=== PATIENT | female | born 1960 | race Caucasian/White ===

== ENCOUNTER 2016-11-30 14:48 | Emergency (ER) | payer OTHER ==
--- NOTE | 2016-11-30 17:14 | ED NURSING NOTES ---
Clinical Report - Nurses [facility] [address] [place] [address] 11/30/2016 14:51 Patient: BRITNEY JARAMILLO TRIAGE Triage time 15:13. Acuity: LEVEL 3. Chief Complaint: (Flu Sx, nausea/vomiting, unable to eat since 11/25. Fever 102.5. Other family had similar sx.). SEPSIS SCREEN: Sepsis Screen. Negative (no infection suspected/documented). JAMI COMA SCORE: [place] Coma Scale: 15- eyes open spontaneously (4); best verbal response- oriented x 4 (5); best motor response- obeys commands (6). --15:21 Carlos Davis R.N. 15:13 11/30/16. BP: 157/115. HR: 86. RR: 20. O2 saturation: 100%. Temp: 99 F (oral). Pain level now: 01/09. --15:21 Carlos Davis R.N. Weight: 68 kg stated. Height/Length: 63 inches Per Patient. BMI: 26.6. --15:18 Carlos Davis R.N. Medications Imitrex Oral. --15:17 Carlos Davis R.N. Allergies No Known Drug Allergy. --15:17 Carlos Davis R.N. 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 SOCIAL HX: Former smoker. No alcohol use or drug use. She has had contact with a sick family member. ABUSE ASSESSMENT: No report of abuse. --15:21 Carlos Davis R.N. PROBLEMS: Cocaine abuse (20 years ago). Migraine Headache. --15:17 Carlos Davis R.N. ADDITIONAL SURGERIES: Knee surgery. --15:17 Carlos Davis R.N. Interventions ID band on patient. To treatment room. --15:21 Carlos Davis R.N. PHYSICAL ASSESSMENT late entry -15:30. Ambulatory to room. GENERAL / NEURO / PSYCH: Alert. Oriented X 4. Appears in pain. (States not really much pain, just feeling really miserable.). HEENT: Pupils equal, round and reactive to light. Mucous membranes are pink. RESPIRATORY: Respirations not labored. Chest nontender. Breath sounds within normal limits. CVS: Capillary refill less than 2 seconds. Pulses within normal limits. GI / : Abdomen soft and normal bowel sounds. Abdominal tenderness. SKIN: Skin intact. Skin is warm and dry. Normal skin turgor. --16:22 Carlos Davis R.N. NURSING PROGRESS NOTES 15:35 11/30/2016 Site #1 started via IV in the right antecubital space with an 18g angiocath, with aseptic technique and good blood return; one attempt. Blood drawn: rainbow set. Labeled in the presence of the patient and sent to the lab. Saline lock flushed with 10 mL saline. --15:40 Carlos Davis R.N. 15:35 11/30/2016 Started bag #1 1000 mL IV Fluids IV NS (Saline); bolus of 1000 mL over 1 hour(s) via site #1. Allergies verified and confirmed 5 rights. IV patency established. IV site checked: no pain, redness, or swelling. IV flushed thoroughly pre- and post-medication administration. --15:40 Carlos Davis R.N. ( urine sent to lab). --16:15 Allison Childs ER Tech1 ( provided patient with cup of water). --16:16 Allison Childs ER Tech1 late entry -15:30. Pulse oximeter applied. Patient gowned. Head of bed elevated. Reassurance given. Call light placed in reach. Bed placed in lowest position. Brakes of bed on. Patient ready for evaluation- chart flagged. --16:23 Carlos Davis R.N. 16:20 11/30/16. BP: 187/99. HR: 63. RR: 20. O2 saturation: 100% on room air. Pain level now: 01/09. --16:23 Carlos Davis R.N. 16:27 11/30/16. BP: 190/93. HR: 56. RR: 20. O2 saturation: 98%. --16:27 Carlos Davis R.N. 16:35 11/30/2016 IV Fluids IV NS Discontinued: bag #1 completed. Total amount infused: 1000 mL. IV patency established. IV site checked: no pain, redness, or swelling. IV flushed thoroughly. --17:27 Carlos Davis R.N. 16:43 11/30/2016 Toradol IVP 30 mg given over 1 minute(s) via site #1. Allergies verified and confirmed 5 rights. IV patency established. IV site checked: no pain, redness, or swelling. IV flushed thoroughly pre- and post-medication administration. IVP given by RN. --16:48 Carlos Davis R.N. 16:50 11/30/2016 Started 1 gm of Ceftriaxone IVPB in bag #1 50 mL; at 200 mL/hr over 15 minute(s) via site #1; Allergies verified and confirmed 5 rights. IV patency established. IV site checked: no pain, redness, or swelling. IV flushed thoroughly pre- and post-medication administration. --16:52 Carlos Davis R.N. 17:15 11/30/2016 Ceftriaxone IVPB Discontinued: bag #1 completed. Total amount infused: 50 mL. IV patency established. IV site checked: no pain, redness, or swelling. IV flushed thoroughly. --17:27 Carlos Davis R.N. 17:20 11/30/2016 Toradol IVP Response: no adverse reaction pain is improving. Symptoms have improved. --17:28 Carlos Davis R.N. DISPOSITION / DISCHARGE 17:52 11/30/16. Departure time: 1752. Condition at departure: improved and stable. No learning barriers present. Discharge instructions provided and reviewed with the patient. Reviewed medication(s). Treatments reviewed. Patient verbalized understanding. Written instructions provided in Hungarian. The patient was discharged by the physician. She was discharged home and accompanied by plant assigner. She left the Emergency Department ambulatory and via private vehicle. Load Checker driving. --17:52 Carlos Davis R.N. 17:45 11/30/16. BP: 190/94. HR: 57. RR: 20. O2 saturation: 100% on room air. Temp: 98.8 F (oral). Pain level now: 01/09. --17:52 Carlos Davis R.N. Locked/Released at 11/30/2016 20:18 by Carlos Davis R.N.
--- NOTE | 2016-11-30 17:14 | ED ORDER SUMMARY ---
..... Patient: BRITNEY JARAMILLO OrderSheet [facility] VisitID: [id number] [place] [address] 56y, F Registration Date/Time: 11/30/2016 ORDER SHEET Weight: 68.0 kg (stated) Allergies: No Known Drug Allergy GENERAL ORDERS: CBC w Diff Urgent (15:19 11/30/2016 Nataliia Grossman) (Ack 15:23 NHouse ER Tech1) (15:39 JSimbeck R.N.) CMP Urgent (15:11/30/2016 Nataliia Grossman) (Ack 15:23 NHouse ER Tech1) (15:39 JSimbeck R.N.) UA-Culture if indicated Urgent (15:11/30/2016 Nataliia Grossman) (Ack 15:23 NHouse ER Tech1) (15:57 JSimbeck R.N.) Lipase Urgent (15:11/30/2016 Nataliia Grossman) (Ack 15:23 NHouse ER Tech1) (15:39 JSimbeck R.N.) MEDICATION ORDERS: IV FLUIDS: IV NS : initial bolus 1000 mL (1000 mL/hr), then none - for X1 (NOW) (15:19 11/30/2016 Nataliia Grossman) (15:40 JSimbeck R.N.) Ceftriaxone IV 1 gm/50mL (NOW) (16:29 11/30/2016 Nataliia Grossman) (Ack 16:37 DDean R.N.) (16:52 JSimbeck R.N.) Toradol IV 30 mg (NOW) (16:29 11/30/2016 Nataliia Grossman) (Ack 16:36 DDean R.N.) (16:48 JSimbeck R.N.) ORDER SHEET NOTES: [Electronically signed by Randall Mane Dr. (17:33 11/30/2016)] [Electronically signed by Carlos Davis R.N. (20:18 11/30/2016)] [Electronically locked/signed by Carlos Davis R.N. (20:18 11/30/2016)]
--- NOTE | 2016-11-30 17:14 | ED NURSING NOTES ---
Clinical Report - Nurses [facility] [address] [place] [address] 11/30/2016 14:51 Patient: BRITNEY JARAMILLO TRIAGE Triage time 15:13. Acuity: LEVEL 3. Chief Complaint: (Flu Sx, nausea/vomiting, unable to eat since 11/25. Fever 102.5. Other family had similar sx.). SEPSIS SCREEN: Sepsis Screen. Negative (no infection suspected/documented). JAMI COMA SCORE: [place] Coma Scale: 15- eyes open spontaneously (4); best verbal response- oriented x 4 (5); best motor response- obeys commands (6). --15:21 Carlos Davis R.N. 15:13 11/30/16. BP: 157/115. HR: 86. RR: 20. O2 saturation: 100%. Temp: 99 F (oral). Pain level now: 01/09. --15:21 Carlos Davis R.N. Weight: 68 kg stated. Height/Length: 63 inches Per Patient. BMI: 26.6. --15:18 Carlos Davis R.N. Medications Imitrex Oral. --15:17 Carlos Davis R.N. Allergies No Known Drug Allergy. --15:17 Carlos Davis R.N. History Treatment AQUATIC INSTRUCTOR: (Pepto bismol, Imetrex, Advil (0800 today), Nyquil). SOCIAL HX: Former smoker. No alcohol use or drug use. She has had contact with a sick family member. ABUSE ASSESSMENT: No report of abuse. --15:21 Carlos Davis R.N. PROBLEMS: Cocaine abuse (20 years ago). Migraine Headache. --15:17 Carlos Davis R.N. ADDITIONAL SURGERIES: Knee surgery. --15:17 Carlos Davis R.N. Interventions ID band on patient. To treatment room. --15:21 Carlos Davis R.N. PHYSICAL ASSESSMENT late entry -15:30. Ambulatory to room. GENERAL / NEURO / PSYCH: Alert. Oriented X 4. Appears in pain. (States not really much pain, just feeling really miserable.). HEENT: Pupils equal, round and reactive to light. Mucous membranes are pink. RESPIRATORY: Respirations not labored. Chest nontender. Breath sounds within normal limits. CVS: Capillary refill less than 2 seconds. Pulses within normal limits. GI / : Abdomen soft and normal bowel sounds. Abdominal tenderness. SKIN: Skin intact. Skin is warm and dry. Normal skin turgor. --16:22 Carlos Davis R.N. NURSING PROGRESS NOTES 15:35 11/30/2016 Site #1 started via IV in the right antecubital space with an 18g angiocath, with aseptic technique and good blood return; one attempt. Blood drawn: rainbow set. Labeled in the presence of the patient and sent to the lab. Saline lock flushed with 10 mL saline. --15:40 Carlos Davis R.N. 15:35 11/30/2016 Started bag #1 1000 mL IV Fluids IV NS (Saline); bolus of 1000 mL over 1 hour(s) via site #1. Allergies verified and confirmed 5 rights. IV patency established. IV site checked: no pain, redness, or swelling. IV flushed thoroughly pre- and post-medication administration. --15:40 Carlos Davis R.N. ( urine sent to lab). --16:15 Allison Childs ER Tech1 ( provided patient with cup of water). --16:16 Allison Childs ER Tech1 late entry -15:30. Pulse oximeter applied. Patient gowned. Head of bed elevated. Reassurance given. Call light placed in reach. Bed placed in lowest position. Brakes of bed on. Patient ready for evaluation- chart flagged. --16:23 Carlos Davis R.N. 16:20 11/30/16. BP: 187/99. HR: 63. RR: 20. O2 saturation: 100% on room air. Pain level now: 01/09. --16:23 Carlos Davis R.N. 16:27 11/30/16. BP: 190/93. HR: 56. RR: 20. O2 saturation: 98%. --16:27 Carlos Davis R.N. 16:35 11/30/2016 IV Fluids IV NS Discontinued: bag #1 completed. Total amount infused: 1000 mL. IV patency established. IV site checked: no pain, redness, or swelling. IV flushed thoroughly. --17:27 Carlos Davis R.N. 16:43 11/30/2016 Toradol IVP 30 mg given over 1 minute(s) via site #1. Allergies verified and confirmed 5 rights. IV patency established. IV site checked: no pain, redness, or swelling. IV flushed thoroughly pre- and post-medication administration. IVP given by RN. --16:48 Carlos Davis R.N. 16:50 11/30/2016 Started 1 gm of Ceftriaxone IVPB in bag #1 50 mL; at 200 mL/hr over 15 minute(s) via site #1; Allergies verified and confirmed 5 rights. IV patency established. IV site checked: no pain, redness, or swelling. IV flushed thoroughly pre- and post-medication administration. --16:52 Carlos Davis R.N. 17:15 11/30/2016 Ceftriaxone IVPB Discontinued: bag #1 completed. Total amount infused: 50 mL. IV patency established. IV site checked: no pain, redness, or swelling. IV flushed thoroughly. --17:27 Carlos Davis R.N. 17:20 11/30/2016 Toradol IVP Response: no adverse reaction pain is improving. Symptoms have improved. --17:28 Carlos Davis R.N. DISPOSITION / DISCHARGE 17:52 11/30/16. Departure time: 1752. Condition at departure: improved and stable. No learning barriers present. Discharge instructions provided and reviewed with the patient. Reviewed medication(s). Treatments reviewed. Patient verbalized understanding. Written instructions provided in Malay. The patient was discharged by the physician. She was discharged home and accompanied by ob tech. She left the Emergency Department ambulatory and via private vehicle. Cd Mixer driving. --17:52 Carlos Davis R.N. 17:45 11/30/16. BP: 190/94. HR: 57. RR: 20. O2 saturation: 100% on room air. Temp: 98.8 F (oral). Pain level now: 01/09. --17:52 Carlos Davis R.N. Locked/Released at 11/30/2016 20:18 by Carlos Davis R.N.
--- NOTE | 2016-11-30 17:14 | ED ORDER SUMMARY ---
..... Patient: BRITNEY JARAMILLO OrderSheet [facility] VisitID: [id number] [place] [address] 56y, F Registration Date/Time: 11/30/2016 ORDER SHEET Weight: 68.0 kg (stated) Allergies: No Known Drug Allergy GENERAL ORDERS: CBC w Diff Urgent (15:19 11/30/2016 Nataliia Grossman) (Ack 15:23 NHouse ER Tech1) (15:39 JSimbeck R.N.) CMP Urgent (15:11/30/2016 Nataliia Grossman) (Ack 15:23 NHouse ER Tech1) (15:39 JSimbeck R.N.) UA-Culture if indicated Urgent (15:11/30/2016 Nataliia Grossman) (Ack 15:23 NHouse ER Tech1) (15:57 JSimbeck R.N.) Lipase Urgent (15:11/30/2016 Nataliia Grossman) (Ack 15:23 NHouse ER Tech1) (15:39 JSimbeck R.N.) MEDICATION ORDERS: IV FLUIDS: IV NS : initial bolus 1000 mL (1000 mL/hr), then none - for X1 (NOW) (15:19 11/30/2016 Nataliia Grossman) (15:40 JSimbeck R.N.) Ceftriaxone IV 1 gm/50mL (NOW) (16:29 11/30/2016 Nataliia Grossman) (Ack 16:37 DDean R.N.) (16:52 JSimbeck R.N.) Toradol IV 30 mg (NOW) (16:29 11/30/2016 Nataliia Grossman) (Ack 16:36 DDean R.N.) (16:48 JSimbeck R.N.) ORDER SHEET NOTES: [Electronically signed by Randall Mane Dr. (17:33 11/30/2016)] [Electronically signed by Carlos Davis R.N. (20:18 11/30/2016)] [Electronically locked/signed by Carlos Davis R.N. (20:18 11/30/2016)]
--- NOTE | 2016-11-30 17:14 | ED CLINICAL REPORT ---
Clinical Report - Physicians/Mid Levels [facility] [address] [place] [address] 11/30/2016 14:51 Patient: BRITNEY JARAMILLO Arrived- By private vehicle. Historian- patient. HISTORY OF PRESENT ILLNESS Chief Complaint: VOMITING and DIARRHEA. This started Past several days and is still present (staying the same). It was abrupt in onset and has been intermittent but is not gone now. No recent travel. She has had nausea, vomiting and diarrhea. Has not recently been camping or on antibiotics. The illness is described as moderate. (symptoms as also been associated with fever, cough, sore throat, congestion, and body aches. Patient reports significant other also has similar symptoms. Patient started to have upper respiratory tract symptoms. Total overall length of symptoms have been about a week. GI symptoms had started later.). Similar symptoms previously: None. Recent medical care: The patient was seen recently by a health care provider. REVIEW OF SYSTEMS The patient has had fever, muscle aches and a cough. No chest pain or skin rash. All systems otherwise negative, except as recorded above. PAST HISTORY See nurses notes. Medications: Imitrex Oral. Allergies: No Known Drug Allergy. SOCIAL HISTORY Smoker- current status unknown. Alcohol use. History of drug use. Is a recovering addict. No recent travel. Is a local resident. ADDITIONAL NOTES The nursing notes have been reviewed. PHYSICAL EXAM Vital Signs: 11/30/2016 15:13 BP: 157/115. HR: 86. RR: 20. O2 saturation: 100%. Temp: 99 F. Pain level now: 2/10. Hypertensive. Oxygen saturation normal. Appearance: Alert. Oriented X3. No acute distress. Eyes: Pupils equal, round and reactive to light. Eyes normal inspection. ENT: Ears normal. Nose normal. Pharynx normal. Neck: Normal inspection. Neck supple. CVS: Normal heart rate and rhythm. Heart sounds normal. Pulses normal. Respiratory: No respiratory distress. Breath sounds normal. Abdomen: Soft and nontender. No mass. (Hyperactive bowel sounds). Skin: Skin warm and dry. Normal skin color. No rash. Normal skin turgor. Extremities: Extremities exhibit normal ROM. No lower extremity edema. LABS, X-RAYS, AND EKG Laboratory Tests: UA-Culture if indicated: (ANAYELI: 11/30/2016 15:15) ( [facility] [place] 16:17) Final results Test Result Flag Units (Reference) URINE COLOR YELLOW URINE APPEARANCE SL CLOUDY URINE GLUCOSE NEGATIVE (NEGATIVE) URINE BILIRUBIN NEGATIVE (NEGATIVE) URINE KETONE NEGATIVE (NEGATIVE) URINE SPECIFIC GRAVITY 1.025 (1.010-1.030) URINE PH 6.0 (5.0-8.0) URINE PROTEIN 2+ (NEGATIVE) URINE UROBILINOGEN 0.2 EU/dL (0.2-1.0) URINE NITRITE NEGATIVE (NEGATIVE) URINE BLOOD 2+ (NEGATIVE) URINE LEUK ESTERASE POSITIVE (NEGATIVE) URINE RBC 3-5 rbc/hpf (0-1) URINE WBC 50-75 wbc/hpf (0-1) URINE EPITHELIAL CELLS 1-3 EPI/hpf (0-5) URINE BACTERIA MANY (4+) (NONE SEEN) URINE COMMENT CULTURE INDICATED URINE CULTURES ARE SET-UP BASED ON THE FOLLOWING CRITERIA:POSITIVE NITRITEPOSITIVE LEUKOCYTE ESTERASEGREATER THAN 10 WHITE BLOOD CELLSMODERATE (2+) OR GREATER BACTERIA CBC w Diff: (ANAYELI: 11/30/2016 15:35) ( [facility] [place] 11/30/2016 16:00) Final results Test Result Flag Units (Reference) WHITE BLOOD COUNT 13.6 H K/uL (4.5-11.5) RED BLOOD COUNT 5.33 H M/uL (4.00-5.20) HEMOGLOBIN 16.1 H gm/dL (12.0-16.0) HEMATOCRIT 48.9 H % (36.0-46.0) MEAN CELL VOLUME 92 fL (80-100) MEAN CORPUSCULAR HGB 30 pg (26-34) MEAN CORPUSCULAR HGB CONC 33 g/dL (31-37) RED CELL DISTRIBUTION WIDTH 12.5 % (11.6-14.8) PLATELET COUNT 425 H K/uL (150-400) NEUTROPHIL % 74.1 % (50-75) LYMPH % 19.7 L % (25-40) MONO % 5.8 % (3-14) EOSINOPHIL % 0 % (0-4) BASOPHIL % 0.4 % (0-2) CMP: (ANAYELI: 11/30/2016 15:35) ( MsgRcvd 11/30/2016 16:06) Final results Test Result Flag Units (Reference) GLUCOSE 116 H mg/dL (70-110) BUN 22 H mg/dL (7-18) CREATININE 0.8 mg/dL (0.6-1.3) Estimated GFR >60 mL/min Estimated GFR- >60 mL/min Note: Persistent reduction over 3 months in eGFR<60 mL/min/1.73 m2 defines CKD. Patients with eGFR values>=60 mL/min/1.73 m2 may also have CKD if evidence ofpersistent proteinuria. Additional information may be foundat www.[email or web address].org. SODIUM 136 mmol/L (136-145) POTASSIUM 3.0 L mmol/L (3.5-5.1) CHLORIDE 98 mmol/L (98-107) CARBON DIOXIDE 29 mmol/L (21-32) CALCIUM 9.5 mg/dL (8.5-10.1) TOTAL PROTEIN 7.8 g/dL (6.4-8.2) ALBUMIN 3.9 g/dL (3.3-5.0) BILIRUBIN, TOTAL 0.6 mg/dL (0.0-1.0) ALKALINE PHOSPHATASE 101 U/L (46-116) AST (SGOT) 19 U/L (15-37) ALT (SGPT) 39 U/L (12-78) LIPASE 121 U/L (73-393) . PROGRESS AND PROCEDURES Course of Care: the patient is a pleasant 56-year-old female with no pertinent past medical history presenting for evaluation of constellation signs and symptoms consistent with viral upper respiratory tract infection. Patient will also be evaluated for the nausea vomiting and diarrhea. Patient will be evaluated with belly labs as well as urinalysis. Patient does have a benign abdominal exam. No focal tenderness noted. Do not feel patient has a surgical abdomen at this time. Patient is agreeable to the treatment plan. Workup is significant for urinalysis. Patient has UTI. We will treat the patient with first dose of antibiotics here in the emergency department. The patient's laboratory studies is unremarkable. Toradol will be provided for improved pain control. Patient is agreeable to the treatment and plan. Upon reevaluation, the patient has improved symptomatology. Patient is resting in bed in no acute distress. IV fluids have been given. Discussed the patient workup, diagnosis, home care, follow-up, and return precautions. All questions answered. The patient expressed understanding of these instructions and was agreeable to them. Disposition: Discharged. Condition: good. CLINICAL IMPRESSION Vomiting with nausea. Diarrhea Mild dehydration Acute urinary tract infection with cystitis and hematuria (acute). Acute viral syndrome Acute generalized abdominal pain. INSTRUCTIONS Warnings: GENERAL WARNINGS: Return or contact your physician immediately if your condition worsens or changes unexpectedly, if not improving as expected, or if other problems arise. SPECIFICALLY, return if you develop pain in the abdomen, fever, vomiting, the inability to keep fluids down, blood in vomitus, blood in diarrhea, fainting or lightheadedness. Your Current Medications: CONTINUE TAKING THE FOLLOWING MEDICATIONS: Imitrex Oral. Prescription Medications: Keflex 500 mg: take 1 capsule orally every 8 hours for 5 days. No refill. Substitution is permissible. (disp 15 caps) Zofran ODT 4 mg: take 1 orally every 8 hours as needed for nausea and vomiting. Dispense ten (10). No refill. Substitution is permissible. OTC Medications: Imodium (available over the counter): take according to label instructions. Follow-up: Return to the emergency department as needed. Follow up with your doctor in three days. Reason for referral: recheck today's concerns. Summary of care provided to patient via paper. Screening today revealed the patient's blood pressure to be in the normal range. The patient should follow up with a primary care provider for blood pressure management. Understanding of the discharge instructions verbalized by patient. (Electronically signed by Randall Mane Dr. 11/30/2016 17:33)
--- NOTE | 2016-11-30 20:18 | ED MED RECONCILIATION SUMMARY ---
Patient: BRITNEY JARAMILLO Medication Reconciliation Report [facility] VisitID: [id number] [place] [address] 56y, F Registration Date/Time: 11/30/2016 Weight: 68.0 kg Height/Length: 63 in. BMI: 26.6 ALLERGIES: No Known Drug Allergy The patient's Home Medications are listed below: CONTINUE TAKING THE FOLLOWING MEDICATIONS: Imitrex Oral The source(s) of the original Home Medication information: Not obtained. The following Medications were given to the patient in the Emergency Department: IV NS IV Fluids bolus 1000 mL over 1 hour(s), administered: 11/30/2016 3:35:00 PM Toradol [IVP] IVP 30 mg, administered: 11/30/2016 4:43:00 PM Ceftriaxone [IVPB] IVPB bolus 0, then 1 gm 200 mL/hr, administered: 11/30/2016 4:50:00 PM The following Medications were prescribed to the patient: Imodium (available over the counter): take according to label instructions. -- Randall Mane Dr. Keflex 500 mg: take 1 capsule orally every 8 hours for 5 days. No refill. Substitution is permissible.(disp 15 caps) -- Randall Mane Dr. Zofran ODT 4 mg: take 1 orally every 8 hours as needed for nausea and vomiting. Dispense ten (10). No refill. Substitution is permissible. -- Randall Mane Dr.
--- NOTE | 2016-11-30 20:18 | ED MAR SUMMARY ---
..... Medication Administration Record [facility] [address] [place] [address] Patient: BRITNEY JARAMILLO Visit ID: [id number] 56y, F Weight: 68.0 kg Height/Length: 63 in BMI: 26.6 ALLERGIES: No Known Drug Allergy Start 15:35 11/30/2016 Carlos Davis R.N., Stop 16:35 11/30/2016 Carlos Davis R.N. Medication Administered: IV NS (SALINE), Dose: IV Fluids, Bolus: 1000 mL over 1 hour(s), Dispensed: 1000 mL bag, Site: #1 right AC. Medication Ordered: IV NS : initial bolus 1000 mL (1000 mL/hr), then none - for X1 (NOW). Given 16:43 11/30/2016 Carlos Davis R.N. Medication Administered: TORADOL [IVP], Dose: 30 mg IVP over 1 minute(s), Site: #1 right AC. Medication Ordered: Toradol IV 30 mg (NOW). Start 16:50 11/30/2016 Carlos Davis R.N., Stop 17:15 11/30/2016 Carlos Davis R.N. Medication Administered: CEFTRIAXONE [IVPB], Dose: 1 gm IVPB over 15 minute(s), Rate: 200 mL/hr, Dispensed: 50 mL bag, Site: #1 right AC. Medication Ordered: Ceftriaxone IV 1 gm/50mL (NOW).
--- NOTE | 2016-11-30 20:18 | ED MAR SUMMARY ---
..... Medication Administration Record [facility] [address] [place] [address] Patient: BRITNEY JARAMILLO Visit ID: [id number] 56y, F Weight: 68.0 kg Height/Length: 63 in BMI: 26.6 ALLERGIES: No Known Drug Allergy Start 15:35 11/30/2016 Carlos Davis R.N., Stop 16:35 11/30/2016 Carlos Davis R.N. Medication Administered: IV NS (SALINE), Dose: IV Fluids, Bolus: 1000 mL over 1 hour(s), Dispensed: 1000 mL bag, Site: #1 right AC. Medication Ordered: IV NS : initial bolus 1000 mL (1000 mL/hr), then none - for X1 (NOW). Given 16:43 11/30/2016 Carlos Davis R.N. Medication Administered: TORADOL [IVP], Dose: 30 mg IVP over 1 minute(s), Site: #1 right AC. Medication Ordered: Toradol IV 30 mg (NOW). Start 16:50 11/30/2016 Carlos Davis R.N., Stop 17:15 11/30/2016 Carlos Davis R.N. Medication Administered: CEFTRIAXONE [IVPB], Dose: 1 gm IVPB over 15 minute(s), Rate: 200 mL/hr, Dispensed: 50 mL bag, Site: #1 right AC. Medication Ordered: Ceftriaxone IV 1 gm/50mL (NOW).
--- NOTE | 2016-11-30 20:18 | ED DISCHARGE INSTRUCTIONS ---
Patient: BRITNEY JARAMILLO General Instructions [facility] VisitID: [id number] [place] [address] 56y, F Registration Date/Time: 11/30/2016 Vomiting with nausea. Diarrhea Mild dehydration Acute urinary tract infection with cystitis and hematuria (acute). Acute viral syndrome Acute generalized abdominal pain. INSTRUCTIONS Warnings: GENERAL WARNINGS: Return or contact your physician immediately if your condition worsens or changes unexpectedly, if not improving as expected, or if other problems arise. SPECIFICALLY, return if you develop pain in the abdomen, fever, vomiting, the inability to keep fluids down, blood in vomitus, blood in diarrhea, fainting or lightheadedness. Your Current Medications: CONTINUE TAKING THE FOLLOWING MEDICATIONS: Imitrex Oral. Prescription Medications: Keflex 500 mg: take 1 capsule orally every 8 hours for 5 days. No refill. Substitution is permissible. (disp 15 caps) Zofran ODT 4 mg: take 1 orally every 8 hours as needed for nausea and vomiting. Dispense ten (10). No refill. Substitution is permissible. OTC Medications: Imodium (available over the counter): take according to label instructions. Follow-up: Return to the emergency department as needed. Follow up with your doctor in three days. Reason for referral: recheck today's concerns. Summary of care provided to patient via paper. Screening today revealed the patient's blood pressure to be in the normal range. The patient should follow up with a primary care provider for blood pressure management. Understanding of the discharge instructions verbalized by patient. ADDITIONAL INFORMATION Vomiting [6Yr-Adult] Vomiting is a common symptom that may be due to different causes. These include gastroenteritis ("stomach flu"), food poisoning and gastritis. There are other more serious causes of vomiting which may be hard to diagnose early in the illness. Therefore, it is important to watch for the warning signs listed below. The main danger from repeated vomiting is dehydration. This is due to excess loss of water and minerals from the body. When this occurs, body fluids must be replaced. Home Care: If symptoms are severe, rest at home for the next 24 hours. You may use acetaminophen (Tylenol) or ibuprofen (Motrin, Advil) to control fever, unless another medicine was prescribed. [NOTE : If you have chronic liver or kidney disease or ever had a stomach ulcer or GI bleeding, talk with your doctor before using these medicines.] (Aspirin should never be used in anyone under 18 years of age who is ill with a fever. It may cause severe liver damage.) Avoid tobacco and alcohol use, which may worsen your symptoms. If medicines for vomiting were prescribed, take as directed. Once vomiting stops, then follow these guidelines: During The First 12-24 Hours follow the diet below: FRUIT JUICES: Apple, grape juice, clear fruit drinks, and electrolyte replacement drinks. BEVERAGES: Soft drinks without caffeine; mineral water (plain or flavored), decaffeinated tea and coffee. SOUPS: Clear broth, consomm and bouillon DESSERTS: Plain gelatin, popsicles and fruit juice bars. As you feel better, you may add 6-8 ounces of yogurt per day. During The Next 24 Hours you may add the following to the above: Hot cereal, plain toast, bread, rolls, crackers Plain noodles, rice, mashed potatoes, chicken noodle or rice soup Unsweetened canned fruit (avoid pineapple), bananas Limit caffeine and chocolate. No spices or seasonings except salt. During The Next 24 Hours Gradually resume a normal diet, as you feel better and your symptoms lessen. Follow Up with your doctor as advised if you are not improving over the next 2-3 days. Get Prompt Medical Attention if any of the following occur: Constant right-sided lower abdominal pain or increasing general abdominal pain Continued vomiting (unable to keep liquids down) for 24 hours Frequent diarrhea (more than 5 times a day); blood (red or black color) or mucus in diarrhea Reduced urine output or extreme thirst Weakness, dizziness or fainting Unusually drowsy or confused Fever of 100.4F (38C) oral or higher, not better with fever medication Yellow color of the eyes or skin Diarrhea, Uncertain Cause (Adult, Report Pending) Diarrhea has several possible causes. Commonstomach fluis caused by a virus. Food poisoning, bacteria or parasites are other causes for diarrhea. Only diarrhea caused by bacteria or parasites requires treatment with an antibiotic. Diarrhea from a virus or food poisoning improves with simple home treatment. A stool sample is needed to make the diagnosis of an infection with bacteria or parasites. Up to three stool specimens may be required to diagnose This may take up to two days to get the result. It may be necessary to wait until the stool test is complete to make the diagnosis and select the best antibiotic to prescribe. Home Care: If symptoms are severe, rest at home for the next 24 hours or until you are feeling better. You may use acetaminophen (Tylenol) or ibuprofen (Motrin, Advil) to control fever, unless another medicine was prescribed. [NOTE: If you have chronic liver or kidney disease or ever had a stomach ulcer or GI bleeding, talk with your doctor before using these medicines.] (Aspirin should never be used in anyone under 18 years of age who is ill with a fever. It may cause severe liver damage.) Avoid tobacco, caffeine and alcohol, which may worsen your symptoms. If anti-diarrhea medicine was prescribed, take this only as directed. Sometimes anti-diarrhea medicine can make your condition worse if the cause is an infectious diarrhea. Therefore, anti-diarrhea medicine should not be taken for this condition unless advised by your doctor. During The First 12-24 Hours follow the diet below: BEVERAGES: Sport drinks like Gatorade, soft drinks without caffeine; maximilian wilfredo, mineral water (plain or flavored), decaffeinated tea and coffee. SOUPS: Clear broth, consomm and bouillon DESSERTS: Plain gelatin (Jell-O), popsicles and fruit juice bars. During The Next 24 Hours you may add the following to the above: Hot cereal, plain toast, bread, rolls, crackers Plain noodles, rice, mashed potatoes, chicken noodle or rice soup Unsweetened canned fruit (avoid pineapple), bananas Limit fat intake to less than 15 grams per day by avoiding margarine, butter, oils, mayonnaise, sauces, gravies, fried foods, peanut butter, meat, poultry and fish. Limit fiber; avoid raw or cooked vegetables, fresh fruits (except bananas) and bran cereals. Limit caffeine and chocolate. No spices or seasonings except salt. During The Next 24 Hours Gradually resume a normal diet, as you feel better and your symptoms lessen. Follow Up with your doctor or as advised if you are not improving over the next two days. If you were asked to bring a specimen from home, bring the sample on the day of collection. You may call in 2 days (or as directed) for the results. Get Prompt Medical Attention if any of the following occur: Increasing abdominal pain or constant lower right abdominal pain Continued vomiting (unable to keep liquids down) Frequent diarrhea (more than 5 times a day) Blood in vomit or stool (black or red color) Reduced oral intake Dark urine, reduced urine output Weakness, dizziness, fainting Drowsiness, confusion, stiff neck or seizure Fever of 100.4F (38C) oral or higher, not better with fever medication New rash Bladder Infection,Female (Adult) A bladder infection ("cystitis" or "UTI") usually causes a constant urge to urinate and a burning when passing urine. Urine may be cloudy, smelly or dark. There may be pain in the lower abdomen. A bladder infection occurs when bacteria from the vaginal area enter the bladder opening (urethra). This can occur from sexual intercourse, wearing tight clothing, dehydration and other factors. Home Care: Drink lots of fluids (at least 6-8 glasses a day, unless you must restrict fluids for other medical reasons). This will force the medicine into your urinary system and flush the bacteria out of your body. Avoid sexual intercourse until your symptoms are gone. Avoid caffeine, alcohol and spicy foods. These can irritate the bladder. A bladder infection is treated with antibiotics. You may also be given Pyridium (generic = phenazopyridine) to reduce the burning sensation. This medicine will cause your urine to become a bright orange color. The orange urine may stain clothing. You may wear a pad or panty-liner to protect clothing. Preventing Future Infections: Always wipe from front to back after a bowel movement. Keep the genital area clean and dry. Drink plenty of fluids each day to avoid dehydration. Both sexual partners should wash before intercourse. Urinate right after intercourse to flush out the bladder. Wear cotton underwear and cotton-lined panty hose; avoid tight-fitting pants. If you are on control pills and are having frequent bladder infections, discuss with your doctor. Follow Up: Return to this facility or see your doctor if ALL symptoms are not gone after three days of treatment. Get Prompt Medical Attention if any of the following occur: Fever of 100.4F (38C) or higher, or as directed by your healthcare provider No improvement by the third day of treatment Increasing back or abdominal pain Repeated vomiting; unable to keep medicine down Weakness, dizziness or fainting Vaginal discharge Pain, redness or swelling in the labia (outer vaginal area) Blood In The Urine Blood in the urine ("hematuria") has many possible causes. If it occurs after an injury (such as a car accident or fall), it is most often a sign of bruising to the kidney or bladder. Common medical causes of blood in the urine include urinary tract infection, kidney stone, inflammation, tumors, or certain other diseases of the kidney or bladder. Menstruation can cause blood to appear in the urine sample, although it is not coming from the urinary tract. If only a trace amount of blood is present, it will show up on the urine test, even though the urine may be yellow and not pink or red. This may occur with any of the above conditions, as well as heavy exercise or high fever. In this case, your doctor may want to repeat the urine test on another day. This will show if the blood is still present. If so, then other tests can be done to find out the cause. Home Care: If your urine does not appear bloody (pink, brown or red) then you do not need to restrict your activity in any way. If you can see blood in your urine, rest and avoid heavy exertion until your next exam. Do not use aspirin or anti-inflammatory medicine like ibuprofen (Motrin, Advil) or naproxen (Naprosyn, Aleve). These thin the blood and may increase bleeding. Follow Up with your doctor or as advised by our staff. If you were injured and had blood in your urine, you should have a repeat urine test in 1-2 days. Contact your doctor or return to this facility for this test. [NOTE: A radiologist will review any X-rays that were taken. We will notify you of any new findings that may affect your care.] Get Prompt Medical Attention if any of the following occur: Bright red blood or blood clots in the urine (if a new symptom) Weakness, dizziness or fainting New groin, abdominal or back pain Fever of 100.4F (38C) or higher, or as directed by your healthcare provider Repeated vomiting Bleeding from nose, gums or easy bruising Dehydration (Adult) Dehydration occurs when your body loses too much fluid. This may be the result of vomiting a lot or from diarrhea,sweating a lot, or a high fever. It may also happen if you dont drink enough fluid when youre sick. Misuse of diuretics (water pills) can also be a cause. Symptoms include thirst and feeling dizzy, weak, fatigued, or very drowsy. The diet described below is usually enough to treat most cases. Sometimes you may needmedicine. Home Care Follow these guidelines for home care: Drink at least 12 8-ounce glasses of fluid every day to overcome the dehydration. Fluid may include water; orange juice; lemonade; apple, grape, and cranberry juice; clear fruit drinks; electrolyte replacement and sports drinks; and teas and coffee without caffeine. If you have been diagnosed with a kidney disease, ask your doctor how much and what types of fluids you should drink to prevent dehydration. If you have kidney disease, drinking too much fluid can cause it build up in the your body and be dangerous to your health. If you have fever, muscle aching, or headache from a viral syndrome, you may useacetaminophen or ibuprofen, unless another medicine was prescribed for this.If you have chronic liver or kidney disease or ever had a stomach ulcer or GI bleeding, talk with your doctor before using these medicines. Don't take aspirin if you are younger than 18 and are ill with a fever.Aspirin raises the chance forsevere liver injury. Follow-up care Follow up with your health care provider if you don't get better in the next 24 to 48 hours. When to seek medical care Get prompt medical attention if any of theseoccur: Continued vomiting (cant keep liquids down) Frequent diarrhea (more than 5 times a day); blood (red or black color) or mucus in diarrhea Blood in vomit or stool Swollen abdomen or increasing abdominal pain Weakness, dizziness, or fainting Unusually drowsy or confused Reduced urine output or extreme thirst Fever of 100.4 F (38 C) oral or higher that does not get better with fever medication Viral Syndrome (Adult) A viral illness may cause a number of symptoms. The symptoms depend on the part of the body that the virus affects. If it settles in the nose, throat, and lungs, it may cause cough, sore throat, congestion, and sometimes headache. If it settles in the stomach and intestinal tract, it may cause vomiting and diarrhea. Sometimes it causes vague symptoms like "aching all over," feeling tired, loss of appetite, or fever. A viral illness usually lasts1 to 2 weeks, but sometimes it lasts longer. In some cases, a more serious infection can look like a viral syndrome in the first few days of the illness. You may need anotherexam and additional teststo know the difference.Watch for the warning signs listed below. Home care Follow these guidelines for taking care of yourself at home: If symptoms are severe, rest at home for the first 2 to 3 days. Stay away from cigarette smoke - both your smoke and the smoke from others. You may useacetaminophen or ibuprofen for fever, muscle aching, and headache, unless another medicine was prescribed for this.If you have chronic liver or kidney disease or ever had a stomach ulcer or GI bleeding, talk with your doctor before using these medicinesNo one who is younger than 18 and ill with a fever should take aspirin. It may cause severe liver damage. Your appetite may be poor, so a light diet is fine. Avoid dehydration by drinking 8 to 12 8-ounce glasses of fluids each day. This may include water; orange juice; lemonade; apple, grape, and cranberry juice; clear fruit drinks; electrolyte replacement and sports drinks; and decaffeinated teas and coffee. If you have been diagnosed with a kidney disease, ask your doctor how much and what types of fluids you should drink to prevent dehydration. If you have kidney disease, drinking too much fluid can cause it build up in the your body and be dangerous to your health. Wujq-hbq-yeeczjj remedies won't shorten the length of the illness but may be helpful forcough, sore throat; and nasal and sinus congestion. Don't use decongestants if you have high blood pressure. Follow-up care Follow up with your health care provider if you do not improve over the next week. When to seek medical care Get prompt medical attention if any of these occur: Cough with lots of colored sputum (mucus) or blood in your sputum Chest pain, shortness of breath, wheezing, or difficulty breathing Severe headache; face, neck, or ear pain Severe, constant pain in the lower right side of your belly (abdominal) Continued vomiting (cant keep liquids down) Frequent diarrhea (more than 5 times a day); blood (red or black color) or mucus in diarrhea Feeling weak, dizzy, or like you are going to faint Extreme thirst Fever of 100.4 F (38 C) oral or higher, not better with fever medication Convulsion Cephalexin Monohydrate Oral tablet What is this medicine? CEPHALEXIN (sef a SHELIA in) is a cephalosporin antibiotic. It is used to treat certain kinds of bacterial infections It will not work for colds, flu, or other viral infections. How should I use this medicine? Take this medicine by mouth with a full glass of water. Follow the directions on the prescription label. This medicine can be taken with or without food. Take your medicine at regular intervals. Do not take your medicine more often than directed. Take all of your medicine as directed even if you think you are better. Do not skip doses or stop your medicine early. Talk to your reject opener regarding the use of this medicine in children. While this drug may be prescribed for selected conditions, precautions do apply. What side effects may I notice from receiving this medicine? Side effects that you should report to your doctor or health point of care technician as soon as possible: allergic reactions like skin rash, itching or hives, swelling of the face, lips, or tongue breathing problems pain or trouble passing urine redness, blistering, peeling or loosening of the skin, including inside the mouth severe or watery diarrhea unusually weak or tired yellowing of the eyes, skin Side effects that usually do not require medical attention (report to your doctor or health point of care technician if they continue or are bothersome): gas or heartburn genital or anal irritation headache joint or muscle pain nausea, vomiting What may interact with this medicine? probenecid some other antibiotics What if I miss a dose? If you miss a dose, take it as soon as you can. If it is almost time for your next dose, take only that dose. Do not take double or extra doses. There should be at least 4 to 6 hours between doses. Where should I keep my medicine? Keep out of the reach of children. Store at room temperature between 59 and 86 degrees F (15 and 30 degrees C). Throw away any unused medicine after the expiration date. What should I tell my health care provider before I take this medicine? They need to know if you have any of these conditions: kidney disease stomach or intestine problems, especially colitis an unusual or allergic reaction to cephalexin, other cephalosporins, penicillins, other antibiotics, medicines, foods, dyes or preservatives or trying to get breast-feeding What should I watch for while using this medicine? Tell your doctor or health point of care technician if your symptoms do not begin to improve in a few days. Do not treat diarrhea with over the counter products. Contact your doctor if you have diarrhea that lasts more than 2 days or if it is severe and watery. If you have diabetes, you may get a false-positive result for sugar in your urine. Check with your doctor or health point of care technician. Ondansetron Oral disintegrating tablet What is this medicine? ONDANSETRON (on LION se lory) is used to treat nausea and vomiting caused by chemotherapy. It is also used to prevent or treat nausea and vomiting after surgery. How should I use this medicine? These tablets are made to dissolve in the mouth. Do not try to push the tablet through the foil backing. With dry hands, peel away the foil backing and gently remove the tablet. Place the tablet in the mouth and allow it to dissolve, then swallow. While you may take these tablets with water, it is not necessary to do so. Talk to your reject opener regarding the use of this medicine in children. Special care may be needed. What side effects may I notice from receiving this medicine? Side effects that you should report to your doctor or health point of care technician as soon as possible: allergic reactions like skin rash, itching or hives, swelling of the face, lips, or tongue breathing problems dizziness fast or irregular heartbeat feeling faint or lightheaded, falls fever and chills swelling of the hands and feet tightness in the chest Side effects that usually do not require medical attention (report to your doctor or health point of care technician if they continue or are bothersome): constipation or diarrhea headache What may interact with this medicine? Do not take this medicine with any of the following medications: -apomorphine -cisapride -dofetilide -dronedarone -pimozide -thioridazine -ziprasidone This medicine may also interact with the following medications: -carbamazepine -phenytoin -rifampicin -tramadol -other medicines that prolong the QT interval (cause an abnormal heart rhythm) What if I miss a dose? If you miss a dose, take it as soon as you can. If it is almost time for your next dose, take only that dose. Do not take double or extra doses. Where should I keep my medicine? Keep out of the reach of children. Store between 2 and 30 degrees C (36 and 86 degrees F). Throw away any unused medicine after the expiration date. What should I tell my health care provider before I take this medicine? They need to know if you have any of these conditions: heart disease history of irregular heartbeat liver disease low levels of magnesium or potassium in the blood an unusual or allergic reaction to ondansetron, granisetron, other medicines, foods, dyes, or preservatives or trying to get breast-feeding What should I watch for while using this medicine? Check with your doctor or health point of care technician as soon as you can if you have any sign of an allergic reaction. You have been given the following additional information: Vomiting (6Y-Adult) Diarrhea, Unk Cause (Adult) Report Pendg Bladder Infection, Female (Adult) Hematuria Dehydration (Adult) Viral Syndrome (Adult) Cephalexin Monohydrate Oral tablet Ondansetron Oral disintegrating tablet (Electronically signed by Randall Mane Dr. 11/30/2016 17:33)
--- NOTE | 2016-11-30 20:18 | ED MED RECONCILIATION SUMMARY ---
Patient: BRITNEY JARAMILLO Medication Reconciliation Report [facility] VisitID: [id number] [place] [address] 56y, F Registration Date/Time: 11/30/2016 Weight: 68.0 kg Height/Length: 63 in. BMI: 26.6 ALLERGIES: No Known Drug Allergy The patient's Home Medications are listed below: CONTINUE TAKING THE FOLLOWING MEDICATIONS: Imitrex Oral The source(s) of the original Home Medication information: Not obtained. The following Medications were given to the patient in the Emergency Department: IV NS IV Fluids bolus 1000 mL over 1 hour(s), administered: 11/30/2016 3:35:00 PM Toradol [IVP] IVP 30 mg, administered: 11/30/2016 4:43:00 PM Ceftriaxone [IVPB] IVPB bolus 0, then 1 gm 200 mL/hr, administered: 11/30/2016 4:50:00 PM The following Medications were prescribed to the patient: Imodium (available over the counter): take according to label instructions. -- Randall Mane Dr. Keflex 500 mg: take 1 capsule orally every 8 hours for 5 days. No refill. Substitution is permissible.(disp 15 caps) -- Randall Mane Dr. Zofran ODT 4 mg: take 1 orally every 8 hours as needed for nausea and vomiting. Dispense ten (10). No refill. Substitution is permissible. -- Randall Mane Dr.
== END 2016-11-30 17:52 | disposition home or self-care (01) ==
LOC: ED SRH 14:48
DX: E86.0 Dehydration (principal); N30.01 Acute cystitis with hematuria; R10.84 Generalized abdominal pain; R11.2 Nausea with vomiting, unspecified; R19.7 Diarrhea, unspecified; B34.9 Viral infection, unspecified; Z79.899 Other long term (current) drug therapy
CPT/HCPCS: 90004; 90100; 90148; 90469; 92235; 95059